=== PATIENT | female | born 1955 | race Caucasian/White ===

== ENCOUNTER → 2021-02-24 | Outpatient (CLI) | payer MEDICARE, BC | END | disposition home or self-care (01) | LOC: CVU 10:38 | PROVIDERS: ATTEND Internal Medicine | DX: C50.911 Malignant neoplasm of unspecified site of right female breast (principal); I08.8 Other rheumatic multiple valve diseases; I10 Essential (primary) hypertension; E78.5 Hyperlipidemia, unspecified | CPT/HCPCS: 93306; 93356 ==

== ENCOUNTER 2021-03-04 08:19 | Outpatient (CLI) | payer MEDICARE, BC | END 2021-03-04 23:59 | disposition home or self-care (01) | LOC: PETCFH 08:19 | PROVIDERS: ATTEND Internal Medicine | DX: C50.411 Malignant neoplasm of upper-outer quadrant of right female breast (principal); N63.10 Unspecified lump in the right breast, unspecified quadrant; K76.89 Other specified diseases of liver; M46.1 Sacroiliitis, not elsewhere classified; E04.9 Nontoxic goiter, unspecified | CPT/HCPCS: 78816; A9552 ==